=== PATIENT | male | born 1965 | race Two or more races ===

== ENCOUNTER 2024-06-03 09:09 | Outpatient (RCR) | payer MEDICAID, SELFPAY ==
--- NOTE | 2024-06-03 09:41 | PTNOTE_ITS ---
PT OP Initial Eval Patient Information Outpatient Physical Therapy Treatment Date: 06/03/24 Visit Reasons: Pain in RT shoulder Medical Diagnosis: M25.511 Start of Care: 06/03/24 Date of Onset: 3 yrs ago Smoking Status Smoking Status: Never smoker Initial Assessment Subjective: Pt is 58 yr old georgian speaking male who reports R shoulder pain since a cow kicked him at work while milking. The UE was forced backward and he reports more pain and weakness since then. He says he has a lifting restriction of 5 lbs with that UE. Increased pain with reaching to the side and lifting things. When he walks the pain goes down the arm and the pain is almost constant. PMH: DM, HTN Imaging: with provider Pt goal: to get better, less pain, improved movement Objective: R shoulder AROM: FF: 80 deg with pain Abd: 80 deg with pain ER: 75 deg with pain HBB: to R glute with pain Awad Josr: positive drop arm: positive Assessment: Pt presents with very limited ROM and strength and high pain level of R shoulder consistent with RC tear. Pt will not likely benefit from skilled therapy and has poor rehab potential to meet goals and will likely have more pain with therapy interventions. PT recommends orthopedic evaluation. Short Term and Radio Interference Supervisor Goals Eval and D/C Treatment Plan Eval and D/C Certification Dates: 06/03/24 to 07/03/24 Procedure Charges OP PT Eval Mod Complex 30 minutes: Yes
== END 2024-06-20 23:59 | disposition home or self-care (01) ==
LOC: CPTX 09:09
PROVIDERS: PCP Physician Assistant; Referring Provider Physician Assistant; Visit Provider Physician Assistant
DX: M25.511 Pain in right shoulder (principal); R53.1 Weakness
CPT/HCPCS: 97162